=== PATIENT | female | born 1980 | race Caucasian/White ===

== ENCOUNTER 2024-01-07 09:34 | Emergency (ER) | payer MEDICAID, OTHER ==
[~2024-01-07] VITALS: Ht 154.9 cm; Wt 53.1 kg
[~2024-01-07 09:34] MED LIST: PREN-385 PO
[2024-01-07 09:40] VITALS: BP 119/70; PULSE 97; RESP 15; TEMP 98.1; O2SAT 100
[2024-01-07 10:28] LABS: BASOPHILS % (AUTO) 0.7 % (0.0-2.0); EOSINOPHILS # (AUTO) 0.1 K/uL (0-0.4); EOSINOPHILS % (AUTO) 1.1 % (0.0-4.0); HEMATOCRIT 37.5 % (36-48); HEMOGLOBIN 12.8 g/dL (12.0-16.0); LYMPHOCYTES # (AUTO) 1.4 K/uL (2.5-16.5); MEAN CORPUSCULAR HEMOGLOBIN 31 pg (27-31); MEAN CORPUSCULAR HGB CONC 34 g/dL (33-37); MEAN CORPUSCULAR VOLUME 91.2 fL (80-94); MONOCYTES # (AUTO) 0.4 K/uL (0.8-1.0); MONOCYTES % (AUTO) 6.4 % (1.7-9.3); NEUTROPHILS # (AUTO) 4.3 K/uL (1.8-7.7); NEUTROPHILS % (AUTO) 68.8 % (42.2-75.2); PLATELET COUNT (AUTO) 257 K/uL (140-450); RED BLOOD CELL COUNT(AUTO) 4.11 MIL/uL (4.20-5.40); RED CELL DISTRIBUTION WIDTH 12.5 % (11.6-13.7); WHITE BLOOD COUNT (AUTO) 6.3 K/uL (4.8-10.8)
[2024-01-07 10:34] LABS: BILIRUBIN,URINE NEGATIVE (NEGATIVE); BLOOD, URINE 3+ (NEGATIVE); COLOR,URINE YELLOW (YELLOW); LEUKOCYTE ESTERASE ,URINE TRACE (NEGATIVE); NITRITE, URINE POSITIVE (NEGATIVE); PROTEIN,URINE NEGATIVE (NEGATIVE); UGLUCOSE NEGATIVE (NEGATIVE); UROBILINOGEN,URINE 0.2 EU/dL (0.2 - 1)
[2024-01-07 10:54] LABS: BACTERIA,URINE OCCASSIONAL /HPF (None Seen); RBC,URINE 20-50 /HPF (0-5); WBC,URINE 0-5 /HPF (0-5)
[2024-01-07 10:56] LABS: APPEARANCE,URINE SLIGHTLY HAZY (CLEAR); MUCUS,URINE 1+ /LPF (None Seen); SQUAMOUS EPITHELIAL CELL,UR 0-3 (FEW) /LPF (0-3 (FEW))
[2024-01-07] MEDS ORDERED: CEPH-588 PO (12:17)
[2024-01-07 12:38] VITALS: BP 120/70; PULSE 82; RESP 16; TEMP 98.1; O2SAT 100
== END 2024-01-07 12:38 | disposition home or self-care (01) ==
LOC: MED 09:34
DX: O23.11 Infections of bladder in pregnancy, first trimester (principal); Z3A.01 Less than 8 weeks gestation of pregnancy
CPT/HCPCS: 36415; 76817; 81001; 81025; 84702; 85025; 86886; 86900; 86901; 96372; 99285; J2790; Q0092; 99284

== ENCOUNTER 2024-01-09 13:12 | Emergency (ER) | payer OTHER ==
[~2024-01-09] VITALS: Ht 152.4 cm; Wt 50.3 kg
[~2024-01-09 13:12] MED LIST changes: +CEPH-588 PO
[2024-01-09 13:26] VITALS: BP 101/67; PULSE 87; RESP 20; TEMP 97; O2SAT 100
[2024-01-09 13:38] VITALS: BP 101/67; PULSE 87; RESP 20; TEMP 97; O2SAT 100
== END 2024-01-09 15:15 | disposition home or self-care (01) ==
LOC: MED 13:12
DX: O02.81 Inappropriate change in quantitative human chorionic gonadotropin (hCG) in early pregnancy (principal); Z79.899 Other long term (current) drug therapy; Z79.2 Long term (current) use of antibiotics; Z3A.01 Less than 8 weeks gestation of pregnancy
CPT/HCPCS: 36415; 84702; 87086; 99283